=== PATIENT | female | born 1960 | race Caucasian/White ===

== ENCOUNTER 2017-07-22 17:38 | Emergency (ER) | payer OTHER, MEDICAID ==
[~2017-07-22] VITALS: Ht 162.6 cm; Wt 83.0 kg
[2017-07-22 17:40] VITALS: BP 152/72
== END 2017-07-22 19:08 | disposition home or self-care (01) ==
LOC: ED 19:07
DX: M62.830 Muscle spasm of back (principal); M25.552 Pain in left hip; G89.29 Other chronic pain; Z85.41 Personal history of malignant neoplasm of cervix uteri
CPT/HCPCS: 99283